=== PATIENT | male | born 1965 | race Caucasian/White ===

== ENCOUNTER → 2019-04-06 | Outpatient (CLI) | payer OTHER ==
--- NOTE | 2019-04-06 11:47 | REP ---
Clinical: Pain at the right third and fourth proximal interphalangeal (PIP) joints. Technique: AP, lateral, bilateral oblique views right third and fourth digits . Findings: The osseous structures and joint spaces are intact and normal. There is no evidence for acute fracture or dislocation. Surrounding soft tissues are unremarkable. No subcutaneous emphysema or radiodense foreign body. Impression: No acute fracture or dislocation. Electronically Signed by Avinash Cao MD 04/06/2019 11:39 A
== END ==
LOC: M WUC 11:18
PROVIDERS: ATTEND Physician Assistant
DX: M79.644 Pain in right finger(s) (principal)